=== PATIENT | male | born 1965 | race Caucasian/White ===

== ENCOUNTER 2016-11-13 13:13 | Day surgery (SDC) ==
--- NOTE | 2016-11-12 11:39 | EKG Report ---
Test Performed on : 11/12/2016 11:30:42 AM Test Reason : PAT Blood Pressure : / mmHG Vent. Rate : 082 BPM Atrial Rate : 082 BPM P-R Int : 128 ms QRS Dur : 090 ms QT Int : 364 ms P-R-T Axes : 035 048 043 degrees QTc Int : 425 ms Normal sinus rhythm. Normal ECG No previous ECGs available Confirmed by Anabella PHILLIPS, Dennis Stallings ([id number]) on 11/13/2016 9:29:00 AM
[2016-11-12 11:54] LABS: HEMATOCRIT 39.6 % (42.0-52.0); HEMOGLOBIN 12.9 g/dL (14.0-18.0); MCH 28.3 PG (27-31); MCHC 32.6 g/dL (33-37); MCV 86.8 FL (81-99); MPV 9.5 FL (7.4-10.4); RBC 4.56 XMIL (4.7-6.1)
[2016-11-12 12:23] LABS: AGAP 13; BUN 11 mg/dL (8-22); CALCIUM 9.2 mg/dL (8.8-10.2); CHLORIDE 99 mmol/L (98-107); COSMO 275; POTASSIUM 4.5 mmol/L (3.5-5.1); SODIUM 136 mmol/L (136-145); TCO2 24 mmol/L (25-35)
[2016-11-13] MEDS ORDERED: PEPCID ONE ×2 (13:28)
[2016-11-13] MEDS ORDERED: LR 1,000 ML ONE (13:28)
[2016-11-13] MEDS ORDERED: REGLAN ONE (13:28)
[2016-11-13] MEDS ORDERED: KEFZOL 2 GM/D5W 50 ML ONE (13:29)
[2016-11-13] MEDS ORDERED: LOPRESSOR ONE (13:47)
[2016-11-13] MEDS ORDERED: NEOSPORIN G.U. IRRIGANT ONE (15:14)
[2016-11-13] MEDS ORDERED: DIPRIVAN 1% ONE (17:21)
[2016-11-13] MEDS ORDERED: FENTANYL ONE (17:21)
--- NOTE | 2016-11-13 17:44 | OPERATIVE NOTE ---
PROCEDURE DATE: 11/13/2016 SURGEON: Barney Oneil MD PREOPERATIVE DIAGNOSES: 1. Hematuria. 2. Large bladder tumor. 3. Large pelvic mass with sigmoid colon mass. POSTOPERATIVE DIAGNOSES: 1. Hematuria. 2. Large bladder tumor. 3. Large pelvic mass with sigmoid colon mass. PROCEDURE PERFORMED: Cystoscopic exam, bilateral retrograde ureteral pyelograms, and transurethral resection of large bladder tumor. ANESTHESIA: General via laryngeal mask. FINDINGS: Cystoscopic exam: Urethra with an approximate 26-Guamanian meatal stricture, dilated to 30-Guamanian with the Fence steel sounds. Urethra greater than 25-Guamanian without stricture. Prostate-mild hypertrophy of the lateral lobes, elevated bladder neck, length approximately 3.5 to 4 cm. Bladder-normal ureteral orifices bilaterally. A large nodular tumor on the left upper posterior wall and lateral wall and portion of the dome. No papillary lesions noted. No diverticula. No trabeculations. Left retrograde ureteral pyelogram normal without filling defect. Right retrograde ureteral pyelogram normal without filling defect. Rectal exam reveals a prostate of 30-40 g, smooth, and symmetric. INDICATION FOR PROCEDURE: This 51-year-old male has a history of hematuria. A CT urogram revealed a large mass in the sigmoid colon with a pelvic mass immediately adjacent to the bladder. DESCRIPTION OF PROCEDURE: After informed consent was obtained from the patient, him receiving IV antibiotics, he was taken the main OR cystoscopy room and placed in supine position. General anesthesia via laryngeal mask was achieved. He was then placed in the low lithotomy position and prepped and draped in the usual sterile fashion for cystoscopic exam. A 21-Guamanian sheath cystoscope was passed through the patient's urethra, prostate, and bladder with findings noted above. The 8-Guamanian cone-tipped catheter was passed through the cystoscope, engaged left ureteral orifice. Contrast was injected. Right side was accomplished similarly. Again, no filling defects were seen on either side. The bladder was left distended. The cystoscope was removed. The 25-Guamanian continuous flow resectoscope sheath was placed. The thin Gyrus loop electrode was placed and the bladder tumor was resected. The tumor was very friable and bled easily. The tumor chips were removed from the bladder by irrigation. To complete hemostasis the vapor button had to be placed and used to coagulate the base area of the tumor. At completion, both ureteral orifices were intact. All tumor chips were removed from the bladder and there were no bleeding areas seen. The bladder was drained. Cystoscope was removed. Rectal exam was performed. He tolerated the procedure well and was taken to the GI lab for colonoscopy and biopsy of the sigmoid tumor mass. ESTIMATED BLOOD LOSS: From this portion was 10 mL.
--- NOTE | 2016-11-13 17:52 | OPERATIVE NOTE ---
PROCEDURE DATE: 11/13/2016 PREOPERATIVE DIAGNOSIS: Large rectosigmoid mass with invasion of the dome of the bladder. PROCEDURE: Colonoscopy with biopsy. DESCRIPTION OF PROCEDURE: On completion of cystoscopy by Dr. Oneil, the patient was taken to the GI lab. Rectal exam revealed no masses. Colonoscope was introduced without difficulty. Rectum was otherwise normal. Beginning at 20 cm, there was a large fungating lesion that extended up to 30 cm with significant narrowing of the colon. There were scattered adenomatous polyps in the rectosigmoid area proximal, right distal to the tumor itself. The remainder of the descending, transverse, right colon, and cecum all visualized and were within normal limits, with no other intrinsic lesions being seen. The scope was gradually removed. The patient tolerated the procedure well. As this lesion is above the peritoneal reflection, the likelihood of benefit from preoperative radiation is not good. The plan is for [facility] consultation for consideration for radical cystectomy and a radical low anterior resection. There is some question with 2 small blotches in the liver that the patient may already have hepatic metastases as well. He will get a CEA this afternoon. Will be seen in the office the first of the week, with plans for a consultation with [facility].
[2016-11-13] MEDS ORDERED: ULTRAM ONE (18:00)
[2016-11-13 18:34] VITALS: BP 148/80
--- NOTE | 2016-11-14 08:46 | Diag Imaging Result Document ---
PROCEDURE NAME: RETROGRADES 2 OR 3 FILMS - 11/13/2016 BILATERAL RETROGRADE PYELOURETEROGRAM: COMPARISON: None available. FINDINGS: 29 spot fluoroscopic images were provided, which was performed during bilateral retrograde pyeloureterogram by Dr. Barney Oneil. The ureters appear to be grossly normal in course and caliber. No discrete filling defect or stricture is identified. The renal collecting systems are grossly unremarkable. No collecting system filling defects are identified. IMPRESSION: As above. Please correlate with live fluoroscopic imaging.
[2016-11-14] MEDS ORDERED: XYLOCAINE-MPF 2% ONE (09:21)
[2016-11-14] MEDS ORDERED: ZOFRAN ONE (09:21)
[2016-11-14] MEDS ORDERED: EPHEDRINE ONE (09:21)
[2016-11-14] MEDS ORDERED: LR 1,000 ML ONE (09:21)
== END 2016-11-13 18:30 | disposition home or self-care (01) ==
LOC: PAT 13:13
PROVIDERS: ATTEND Urology
DX: C67.4 Malignant neoplasm of posterior wall of bladder (principal); C20 Malignant neoplasm of rectum; I10 Essential (primary) hypertension; F17.210 Nicotine dependence, cigarettes, uncomplicated; E11.9 Type 2 diabetes mellitus without complications
CPT/HCPCS: 74420; 80048; 82378; 82948; 85027; 93005; 93010; J0690; J2405; J3010; J7120; Q9966